=== PATIENT | male | born 1980 | race Caucasian/White ===

== ENCOUNTER 2017-02-09 22:16 | Emergency (ER) | payer BC ==
[~2017-02-09] VITALS: Ht 182.9 cm; Wt 86.2 kg
--- NOTE | 2017-02-09 23:20 | NUR ---
Pt to room and changed into gown. Pt hiking in [place] yesterday and started feeling sick, fever, cough and sob. Pt returned home cont to have fever and sob. Lungs CTA. Resp even and unlabored. Pt resting in position of comfort for self. Family at bedside.
--- NOTE | 2017-02-10 00:15 | NUR ---
Dr. Bruner at bedside for MSE
[2017-02-10] MEDS ORDERED: DOXYCYCLINE HYCLATE 100 MG TABLET PO ONE (00:30)
[2017-02-10] MEDS ORDERED: KETOROLAC TROMETHAMINE 30 MG INJ IVP ONE (00:30)
[2017-02-10] MEDS ORDERED: CEFTRIAXONE 1 G in IV DEXTROSE 5% 50 ML IV ONE (00:30)
[2017-02-10] MEDS ORDERED: IV NORMAL SALINE 1000 ML BAG IV ONE (00:30)
[2017-02-10 00:40] LABS: BASOPHILS % (AUTO) 0.5 % (0.0-2.0); EOSINOPHILS # (AUTO) 0.1 K/uL (0.0-0.7); EOSINOPHILS % (AUTO) 1.5 % (0.0-7.0); HEMATOCRIT 43.2 % (40-50); HEMOGLOBIN 14.5 G/DL (14.0-18.0); LYMPHOCYTES # (AUTO) 1.3 K/UL (0.8-4.8); LYMPHOCYTES % (AUTO) 14.8 % (20.5-51.5); MEAN CORPUSCULAR HEMOGLOBIN 28.7 UUG (27.0-31.0); MEAN CORPUSCULAR HGB CONC 34 g/dL (32.0-37.0); MEAN CORPUSCULAR VOLUME 85.5 FL (82.0-92.0); NEUTROPHILS # (AUTO) 6.1 K/UL (1.8-8.9); NEUTROPHILS % (AUTO) 71.2 % (38.5-71.5); PLATELET COUNT (AUTO) 220 K/UL (150-450); RED BLOOD CELL COUNT(AUTO) 5.06 MIL/UL (4.7-6.1); WHITE BLOOD COUNT (AUTO) 8.5 K/UL (4.0-11.2)
--- NOTE | 2017-02-10 00:46 | NUR ---
Pt seen by . IV established, labs drawn and sent. Pt medicated for discomfort. ABT infusion started, will monitor for any adverse reactions. Fluid bolus infusing freely to gravity. Pt resting in position of comfort for self.
[2017-02-10] MEDS ORDERED: DOXYCYCLINE HYCLATE 100 MG TABLET ONE (00:48)
[2017-02-10] MEDS ORDERED: KETOROLAC TROMETHAMINE 30 MG INJ ONE (00:49)
[2017-02-10] MEDS ORDERED: CEFTRIAXONE 1 G VIAL ONE (00:49)
[2017-02-10 00:51] LABS: BILIRUBIN,DIRECT 0.1 mg/dL (0.0-0.2); BILIRUBIN,TOTAL 0.3 mg/dL (0.2-1.0); CREATININE 0.9 mg/dL (0.6-1.3); POTASSIUM 3.6 mmol/L (3.5-5.1); TOTAL PROTEIN, SERUM 7.2 g/dL (6.4-8.2)
--- NOTE | 2017-02-10 01:30 | NUR ---
ABT infusion completed, no adverse reactions noted. Fluid bolus cont infusing freely to gravity. Pt resting in position of comfort for self.
--- NOTE | 2017-02-10 02:50 | NUR ---
Pt sts he is feeling better. Pt stable for discharge per MD. IV dc'd, catheter intact. Drsg applied. No problems noted to site. Pt and family given ACI. Both verbalized understanding of dc instructions. 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 All belongings taken home with pt.
[2017-02-10 02:56] VITALS: BP 115/64
== END 2017-02-10 02:56 | disposition home or self-care (01) ==
LOC: ER 22:18
DX: J18.9 Pneumonia, unspecified organism (principal); E78.5 Hyperlipidemia, unspecified; F10.20 Alcohol dependence, uncomplicated
CPT/HCPCS: 36415; 70030-TC; 71010; 83605; 85025; 85730; 87040; 93005; A4663; J0696; J1885; J7030; J7060